=== PATIENT | female | born 1945 | race Caucasian/White ===

== ENCOUNTER 2018-06-02 11:46 | Inpatient (IN) | payer MEDICARE, OTHER | END 2018-06-04 14:30 | disposition home or self-care (01) | LOC: PAS IN 11:46 → ORTHO 4S 18:50 | PROC: 0SRD0J9 Replacement of Left Knee Joint with Synthetic Substitute, Cemented, Open Approach (ICD-10-PCS; principal; 2018-06-02 15:11) | DX: M17.12 Unilateral primary osteoarthritis, left knee (principal); D62 Acute posthemorrhagic anemia ==